=== PATIENT | female | born 1970 ===

== ENCOUNTER 2023-11-19 08:45 | Inpatient (IN) | payer OTHER ==
[2023-11-19] MEDS ORDERED: METFORMIN (10:52)
[2023-11-19] MEDS ORDERED: MONTELUKAST SODI4 M1 (10:52)
[2023-11-19 12:30] LABS: PH,URINE 5.5 (5.0-8.0); URINE APPEARANCE Clear; URINE BILIRRUBIN Negative (NEGATIVE); URINE BLOOD Negative; URINE COLOR Yellow; URINE GLUCOSE Negative (NEGATIVE); URINE LEUKOCYTE Trace; URINE NITRATE Negative; URINE PROTEIN Negative (NEGATIVE); URINE UROBILINOGEN 0.2 E.U./dl
[2023-11-19 12:34] LABS: URINE BACTERIA 901.9 uL (0.0-1933); URINE EPITHELIAL CELLS 10.3 uL (0.0-38.8); URINE WBC 20.8 uL (0.0-23.2)
[2023-11-19 12:41] LABS: HEMATOCRIT 38.3 % (36.0-45.00); HEMOGLOBIN 13.4 g/dL (12.0-15.00); MEAN CELL VOLUME 84.9 fL (80.00-100.00); MEAN CORPUSCULAR HEMOGLOBIN 29.6 pg (27.00-32.0); MEAN CORPUSCULAR HGB CONC 34.9 g/dl (32.0-36.0); PLATELET COUNT 248 K/uL (150-450); RED BLOOD COUNT 4.52 M/uL (4.00-6.00); RED CELL DISTRIBUTION WIDTH 13.1 % (11.5-14.5)
[2023-11-19 12:42] LABS: URINE RBC 1.1 uL (0.0-20.8)
[2023-11-19 13:31] LABS: INR 1.02; PARTIAL THROMBOPLASTIN TIME 28.5 SECONDS (22.0-34.0); PROTHROMBIN TIME 10.7 SECONDS (9.0-11.5)
[2023-11-19 13:50] LABS: BILIRUBIN TOTAL 1.35 mg/dL (0.3-1.2); CALCIUM 9.7 mg/dL (8.5-10.1); CREATININE SERUM 0.76 mg/dL (0.55-1.02); GFR 79.61; GLOBULINA 3.2 G/DL (2.4-3.5); POTASSIUM 4.25 mEq/L (3.5-5.1); TOTAL PROTEIN 7.2 gm/dL (6.4-8.2); TSH 2.47 uIU/mL (0.358-3.74)
[2023-11-27] MEDS ORDERED: CEFAZOLIN SODIUM 1,000 MG VIAL ONE (10:46)
[2023-11-27] MEDS ORDERED: POVIDONE-IODINE 118 ML BOTT TOP ONE ×2 (10:52→13:30)
[2023-11-27] MEDS ORDERED: MORPHINE SULFATE 4 MG/ML CARTRIDGE IV PRN (11:15)
[2023-11-27] MEDS ORDERED: RINGERS SOLUTION,LACTATED 1,000 ML IV SCH (11:15)
[2023-11-27] MEDS ORDERED: OxyCODONE HCL/APAP UD (PERCOCET) PO PRN (11:30)
[2023-11-27] MEDS ORDERED: METRONIDAZOLE/SODIUM CHLORIDE 500 MG/100 ML PIGGYBACK IV ONE (13:30)
[2023-11-27] MEDS ORDERED: CEFAZOLIN SODIUM 1,000 MG VIAL IV ONE (13:30)
[2023-11-27] MEDS ORDERED: THROMBIN,HU/FIBRINOGEN/CALCIUM 10 ML SYRINGE TOP ONE ×2 (14:33→14:45)
[2023-11-27] MEDS ORDERED: VISTASEAL DUAL APPICATOR 1 EACH APPL TOP ONE ×2 (14:33→14:45)
[2023-11-27] MEDS ORDERED: PANTOPRAZOLE SO40 MG (16:22)
[2023-11-27] MEDS ORDERED: GLIPIZIDE5 MG (16:22)
[2023-11-27] MEDS ORDERED: LISINOPRIL10 MG (16:22)
[2023-11-27] MEDS ORDERED: METFORMIN HCL1000 M3 (16:22)
[2023-11-27] MEDS ORDERED: MONTELUKAST SOD10 MG (16:23)
[2023-11-27] MEDS ORDERED: IBUprofen 800 MG TABLET PO SCH (17:00)
[2023-11-27] MEDS ORDERED: DOCUSATE SODIUM 100MG CAP PO SCH (17:00)
[2023-11-27] MEDS ORDERED: ONDANSETRON HCL 2 MG/ML VIAL IV SCH (21:00)
[2023-11-28] MEDS ORDERED: OxyCODONE HCL/APAP UD (PERCOCET) PO PRN (05:00)
[2023-11-28 07:34] LABS: HEMATOCRIT 36.1 % (36.0-45.00); HEMOGLOBIN 12.2 g/dL (12.0-15.00); MEAN CELL VOLUME 84.9 fL (80.00-100.00); MEAN CORPUSCULAR HEMOGLOBIN 28.6 pg (27.00-32.0); MEAN CORPUSCULAR HGB CONC 33.7 g/dl (32.0-36.0); PLATELET COUNT 225 K/uL (150-450); RED BLOOD COUNT 4.25 M/uL (4.00-6.00); RED CELL DISTRIBUTION WIDTH 13.2 % (11.5-14.5)
[2023-11-28 08:17] LABS: ALBUMIN 3.2 gm/dL (3.4-5.0); BILIRUBIN TOTAL 2.08 mg/dL (0.3-1.2); CALCIUM 8.6 mg/dL (8.5-10.1); CREATININE SERUM 0.81 mg/dL (0.55-1.02); GFR 73.96; GLOBULINA 2.4 G/DL (2.4-3.5); POTASSIUM 4.35 mEq/L (3.5-5.1); TOTAL PROTEIN 5.6 gm/dL (6.4-8.2)
[2023-11-28] MEDS ORDERED: COLACE100 MG PO (08:42)
[2023-11-28] MEDS ORDERED: OXYC1TAB9 PO (08:42)
[2023-11-28] MEDS ORDERED: IBUPROFEN800 MG PO (08:42)
== END 2023-11-28 12:59 | disposition home or self-care (01) | DRG 743 ==
LOC: OB/GYN 11-27 06:39 → O/R 11-27 06:39 → SURH 11-27 08:45 → OB/GYN 11-27 17:03 → SURH 11-27 20:30 → OB/GYN 11-28 12:59
PROVIDERS: Surgery; ADMIT Student in an Organized Health Care Education/Training Program; ATTEND Student in an Organized Health Care Education/Training Program
PROC: 0UN24ZZ Release Bilateral Ovaries, Percutaneous Endoscopic Approach (ICD-10-PCS; 2023-11-27)
PROC: 0DNW4ZZ Release Peritoneum, Percutaneous Endoscopic Approach (ICD-10-PCS; 2023-11-27)
PROC: 0UT74ZZ Resection of Bilateral Fallopian Tubes, Percutaneous Endoscopic Approach (ICD-10-PCS; 2023-11-27)
PROC: 0TJB8ZZ Inspection of Bladder, Via Natural or Artificial Opening Endoscopic (ICD-10-PCS; 2023-11-27)
PROC: 0UT94ZZ Resection of Uterus, Percutaneous Endoscopic Approach (ICD-10-PCS; principal; 2023-11-27 20:30)
PROC: 0UN74ZZ Release Bilateral Fallopian Tubes, Percutaneous Endoscopic Approach (ICD-10-PCS; 2023-11-27 20:30)
DX: D25.1 Intramural leiomyoma of uterus (principal); D25.2 Subserosal leiomyoma of uterus; N73.6 Female pelvic peritoneal adhesions (postinfective); N80.203 Endometriosis of bilateral fallopian tubes, unspecified depth; N80.50 Endometriosis of intestine, unspecified; N87.1 Moderate cervical dysplasia; Z20.822 Contact with and (suspected) exposure to COVID-19; R10.2 Pelvic and perineal pain